=== PATIENT | male | born 1965 | race Caucasian/White ===

== ENCOUNTER → 2018-11-14 | Outpatient (REF) ==
--- NOTE | 2018-11-15 02:20 | REP ---
Clinical: Pain and disability. Technique: AP, lateral, swimmers, open mouth views of the cervical spine. Findings: Alignment is maintained. There is no evidence for acute fracture / compression injury or subluxation. C1-C2 articulation and odontoid process appear normal. Advanced multilevel degenerative changes include endplate sclerosis, disc space narrowing, and osteophytosis. Impression: Advanced multilevel degenerative spondylosis. Electronically Signed by Herman Davis MD 11/15/2018 02:11 A
== END ==
LOC: M SMT 13:04
PROVIDERS: ATTEND Internal Medicine
DX: Z02.71 Encounter for disability determination (principal)